=== PATIENT | female | born 1965 | race African-American/Black ===

== ENCOUNTER → 2017-01-06 | Outpatient (CLI) | payer OTHER ==
[~2017-01-06] MED LIST: "DEPAKOTE \\\"ER\\\"500 MG" PO; ARICEPT5 MG PO; ASPIR 8181 MG PO; CALCIUM500 MG PO; COGENTIN 2MG TAB2 MG PO; DEPO-PROVE150 MG/11 IM; IBUPROFEN600 MG PO; LIORESAL TAB 1010 MG PO; LIPITOR TAB 2020 MG PO; MULTIVITAMINS1 EAC1 PO; NEURONTIN 300300 MG PO; NITROSTAT0.4 MG SL; NORCO 5-325 TA1 EACH PO; PAXIL20 MG PO; PROVENTIL HFA 61 INH INH; REMERON15 MG PO; SYMBICORT 16010.2 GM INH; TYLENOL 325MG325 MG PO; ZYRTEC10 M3 PO
== END ==
LOC: RAD 16:23
DX: J40 Bronchitis, not specified as acute or chronic (principal)
CPT/HCPCS: 71020

== ENCOUNTER 2017-01-14 10:46 | Emergency (ER) | payer OTHER ==
[2017-01-14 14:56] LABS: HEMOGLOBIN 13.3 gm/dl (12.3-15.3); RED BLOOD COUNT 4.48 M/UL (4.00-5.10); WHITE BLOOD COUNT 9.3 K/UL (4.5-11.0)
[2017-01-14 15:13] LABS: BUN/CREATININE RATIO 37 (0-10)
== END 2017-01-14 16:05 | disposition home or self-care (01) ==
LOC: ER1 10:46
PROVIDERS: Emergency Medicine
DX: S09.90XA Unspecified injury of head, initial encounter (principal); S13.9XXA Sprain of joints and ligaments of unspecified parts of neck, initial encounter; F17.200 Nicotine dependence, unspecified, uncomplicated; W17.89XA Other fall from one level to another, initial encounter; Z88.5 Allergy status to narcotic agent
CPT/HCPCS: 36415; 70450; 72125; 80048; 84484; 85025; 99284; J7030

== ENCOUNTER → 2017-03-22 | Outpatient (CLI) | payer OTHER | LOC: RAD 14:28 | DX: M25.572 Pain in left ankle and joints of left foot (principal) | CPT/HCPCS: 73610; 73630 ==

== ENCOUNTER 2021-05-02 11:11 | Emergency (ER) | payer OTHER ==
[~2021-05-02 11:11] MED LIST changes: -"DEPAKOTE \\\"ER\\\"500 MG" PO; +COLACE 100MG C100 MG PO; +DEPAKOTE500 MG PO; +GLUCOPHAGE 850850 MG PO; +HUMALOG 10100 UNITS/ SC; +LANTUS INS100 UTS/M1 SC; +LOPRESSOR 25 MG25 MG PO; +NAPROSYN500 MG PO; +NOVOLOG100 UNIT/1 SC; +PROVENTIL HFA6.7 GM INH; +[UNRECOGNIZED DRUG - OTHER] TOP
== END 2021-05-02 15:45 | disposition home or self-care (01) ==
LOC: ER1 11:11
DX: S09.90XA Unspecified injury of head, initial encounter (principal); S16.1XXA Strain of muscle, fascia and tendon at neck level, initial encounter; S29.012A Strain of muscle and tendon of back wall of thorax, initial encounter; E11.9 Type 2 diabetes mellitus without complications; J44.9 Chronic obstructive pulmonary disease, unspecified; E78.5 Hyperlipidemia, unspecified; F17.210 Nicotine dependence, cigarettes, uncomplicated; M50.322 Other cervical disc degeneration at C5-C6 level; W22.8XXA Striking against or struck by other objects, initial encounter; Y92.000 Kitchen of unspecified non-institutional (private) residence as the place of occurrence of the external cause
CPT/HCPCS: 70450; 72125; 72128; 99284; J2270

== ENCOUNTER → 2021-07-08 | Outpatient (CLI) | payer OTHER | LOC: KOH-I 16:06 | DX: R76.11 Nonspecific reaction to tuberculin skin test without active tuberculosis (principal) | CPT/HCPCS: 71046 ==

== ENCOUNTER → 2021-08-25 | Outpatient (CLI) | payer OTHER | LOC: EMI 13:00 | DX: R53.1 Weakness (principal); R29.898 Other symptoms and signs involving the musculoskeletal system; M43.16 Spondylolisthesis, lumbar region; M51.16 Intervertebral disc disorders with radiculopathy, lumbar region | CPT/HCPCS: 72148 ==

== ENCOUNTER → 2022-01-19 | Outpatient (CLI) | payer OTHER | LOC: KOH-I 11:15 | DX: R76.11 Nonspecific reaction to tuberculin skin test without active tuberculosis (principal); R91.8 Other nonspecific abnormal finding of lung field | CPT/HCPCS: 71046 ==

== ENCOUNTER → 2022-03-02 | Outpatient (CLI) | payer OTHER | LOC: KOH-I 10:37 | DX: J40 Bronchitis, not specified as acute or chronic (principal); R91.8 Other nonspecific abnormal finding of lung field | CPT/HCPCS: 71046 ==

== ENCOUNTER → 2022-03-12 | Outpatient (CLI) | payer OTHER | LOC: US 02-24 09:15 → CT 02-26 13:00 → US 03-01 08:00 → CT 03-04 09:00 → US 03-05 10:00 → CT 03-09 09:00 → US 10:10 | DX: E78.5 Hyperlipidemia, unspecified (principal); E11.9 Type 2 diabetes mellitus without complications | CPT/HCPCS: 76705 ==

== ENCOUNTER 2022-03-25 08:47 | Emergency (ER) | payer OTHER | END 2022-03-25 11:44 | disposition home or self-care (01) | LOC: ER1 08:47 | DX: S00.03XA Contusion of scalp, initial encounter (principal); S10.93XA Contusion of unspecified part of neck, initial encounter; I10 Essential (primary) hypertension; E11.9 Type 2 diabetes mellitus without complications; E78.5 Hyperlipidemia, unspecified; J44.9 Chronic obstructive pulmonary disease, unspecified; Z79.4 Long term (current) use of insulin; W05.0XXA Fall from non-moving wheelchair, initial encounter; Y92.009 Unspecified place in unspecified non-institutional (private) residence as the place of occurrence of the external cause | CPT/HCPCS: 70450; 71045; 72125; 99284 ==

== ENCOUNTER → 2022-05-07 | Outpatient (CLI) | payer OTHER | LOC: US 14:34 | DX: Z78.0 Asymptomatic menopausal state (principal) | CPT/HCPCS: 76641 ==

== ENCOUNTER → 2022-06-04 | Outpatient (CLI) | payer OTHER | LOC: CT 10:07 | DX: J98.11 Atelectasis (principal); M25.561 Pain in right knee; M25.572 Pain in left ankle and joints of left foot; M25.571 Pain in right ankle and joints of right foot; E11.9 Type 2 diabetes mellitus without complications; E78.5 Hyperlipidemia, unspecified; J40 Bronchitis, not specified as acute or chronic | CPT/HCPCS: 71046; 71271; 73502; 73562; 73610; Q9967 ==

== ENCOUNTER 2022-06-13 11:11 | Inpatient (IN) | payer OTHER ==
[~2022-06-13] VITALS: Ht 157.5 cm; Wt 62.1 kg
[~2022-06-13 11:11] MED LIST changes: +CALCIUM 500 +1 EAC1 PO; -CALCIUM500 MG PO; +MIRTAZAPINE45 MG PO; -NEURONTIN 300300 MG PO; +NEURONTIN300 MG PO; -REMERON15 MG PO
[2022-06-13 12:47] LABS: HEMOGLOBIN 14.4 gm/dl (12.3-15.3); RED BLOOD COUNT 4.84 M/UL (4.00-5.10); WHITE BLOOD COUNT 9.5 K/UL (4.5-11.0)
[2022-06-13 13:15] LABS: BUN/CREATININE RATIO 16 (0-10)
[2022-06-13] MEDS ORDERED: TYLENOL EXTRA500 MG PO (15:20)
[2022-06-13] MEDS ORDERED: WELLBUTRIN XL300 MG PO (15:39)
[2022-06-13] MEDS ORDERED: METFORMIN HCL500 M2 PO (15:40)
[2022-06-13] MEDS ORDERED: CYPROHEPTADINE H4 MG PO (15:41)
[2022-06-13 15:45] LABS: BUN/CREATININE RATIO 16 (0-10)
[2022-06-13] MEDS ORDERED: DESMOPRESSIN A0.1 MG PO (15:46)
[2022-06-13] MEDS ORDERED: LANTUS SOL100 UNIT/1 SQ (15:49)
[2022-06-13 20:07] LABS: BUN/CREATININE RATIO 14 (0-10)
[2022-06-14 06:40] LABS: HEMOGLOBIN 13.5 gm/dl (12.3-15.3); RED BLOOD COUNT 4.53 M/UL (4.00-5.10); WHITE BLOOD COUNT 7.9 K/UL (4.5-11.0)
[2022-06-14 07:18] LABS: BUN/CREATININE RATIO 17 (0-10)
--- NOTE | 2022-06-14 13:43 | NUR ---
1155 lab here to draw pts blood unsuccessful after phlebotomy lab assistant had stuck pt,pt amarilis arm away and started cussing,pt refuses to let lab stick her,lab attemted [address] andre notified
[2022-06-14 14:33] LABS: BUN/CREATININE RATIO 16 (0-10)
[2022-06-15 04:54] LABS: BUN/CREATININE RATIO 12 (0-10)
[2022-06-15 12:24] LABS: BUN/CREATININE RATIO 10 (0-10)
--- NOTE | 2022-06-15 18:53 | NUR ---
WENT TO PATIENTS ROOM TO DO SHIFT ASSESSMENT: PT STATES THAT SHE WANTS TO GO SMOKE. I EXPLAIN TO PT THAT THIS IS A NON SMOKING HOSPITAL AND PTS CAN NOT LEAVE THIS ICU TO GO TO SMOKE. PT STATES THAT SHE DOESNT CARE AND THEY WE ARE NOT GOING TO STOP HER. PT BECOMES VERBALL ABUSIVE AND TREATENING STAFF. HOUSE SUPERVIOR IBRAHIMA WAS CALLED AND STATES HE IS TRYING TO FIND SOMEONE TO SIT WITH THIS PATIENT SHE WAS A 1;1 ON [employer] BUT DID NOT HAVE A SITTER WHEN SHE ARRIVED IN ICU ACCORDING TO REPORT. PT CONTINUES TO THREATENING ME STATING SHE DOESNT CARE TO "KILL ME". PT AFTER 10 MINUTES OF YELLING AND CURSING CALMS HERSELF AFTER STAFF IS OUT OF THE ROOM. PT DOES CONTINUE TO VERBALLY THREATEN ANYTIME SHE SEES ANY STAFF MEMBER AT THIS TIME. PLASTERER JOURNEYMAN IBRAHIMA WAS AWARE THAT SHE WAS A 1;1 AND ONE WAS NOT SENT AND ONE WILL STILL CONTINUED NOT TO BE SENT DESPITE 1;1 ORDER WRITTEN BY A DOCTOR AND MULTIPLE STAFF ASKING FOR HELP WITH THIS PATIENT.
[2022-06-15 20:31] LABS: BUN/CREATININE RATIO 9 (0-10)
[2022-06-16 03:57] LABS: HEMOGLOBIN 14.1 gm/dl (12.3-15.3); RED BLOOD COUNT 4.65 M/UL (4.00-5.10); WHITE BLOOD COUNT 8.5 K/UL (4.5-11.0)
[2022-06-16 04:13] LABS: BUN/CREATININE RATIO 10 (0-10)
[2022-06-16 12:36] LABS: BUN/CREATININE RATIO 9 (0-10)
[2022-06-17 10:52] LABS: BUN/CREATININE RATIO 4 (0-10)
[2022-06-17] MEDS ORDERED: NICOTINE PATCH1 EAC1 TD (12:06)
[2022-06-17] MEDS ORDERED: CHRONULAC20 GM/30 M PO (12:06)
--- NOTE | 2022-06-17 13:27 | NUR ---
received d/c chart from [facility]
== END 2022-06-17 15:12 | disposition home or self-care (01) | DRG 645 ==
LOC: ER1 11:11 → CDU 14:21 → M/S 14:21 → CCU 06-15 16:02 → M/S 06-16 17:34
PROVIDERS: Internal Medicine Infectious Disease; Internal Medicine Nephrology; Physician Assistant; ADMIT Internal Medicine
DX: E22.2 Syndrome of inappropriate secretion of antidiuretic hormone (principal); G40.909 Epilepsy, unspecified, not intractable, without status epilepticus; J45.909 Unspecified asthma, uncomplicated; I10 Essential (primary) hypertension; E78.5 Hyperlipidemia, unspecified; K59.00 Constipation, unspecified; F17.200 Nicotine dependence, unspecified, uncomplicated; T38.895A Adverse effect of other hormones and synthetic substitutes, initial encounter; E11.649 Type 2 diabetes mellitus with hypoglycemia without coma; Z79.84 Long term (current) use of oral hypoglycemic drugs; Z79.899 Other long term (current) drug therapy; Z87.820 Personal history of traumatic brain injury; Z79.82 Long term (current) use of aspirin; Z88.5 Allergy status to narcotic agent
CPT/HCPCS: 36415; 70450; 71045; 72192; 80048; 80053; 81001; 82436; 82533; 82550; 82553; 82962; 83605; 83735; 83880; 84300; 84439; 84443; 84484; 84550; 85025; 87086; 93005; 94664; 94760; 96372; 99285; G0378; J1940; J2597; J7131